=== PATIENT | male | born 1975 | race African-American/Black ===

== ENCOUNTER 2017-11-12 20:46 | Emergency (ER) | payer MEDICARE, MEDICAID ==
[~2017-11-12] VITALS: Ht 160 cm; Wt 124.0 kg
[2017-11-12] MEDS ORDERED: KETOROLAC 30 MG/1 ML ONE (22:54)
[2017-11-12] MEDS ORDERED: DIAZEPAM 5 MG TABLET ONE (22:54)
[2017-11-12] MEDS ORDERED: DIAZEPAM 5 MG TABLET PO ONE (23:00)
[2017-11-12] MEDS ORDERED: KETOROLAC 30 MG/1 ML IM ONE (23:00)
[2017-11-12 23:43] VITALS: BP 136/74
== END 2017-11-13 00:21 | disposition home or self-care (01) ==
LOC: ED 22:32
DX: S16.1XXA Strain of muscle, fascia and tendon at neck level, initial encounter (principal); S29.012A Strain of muscle and tendon of back wall of thorax, initial encounter; M51.34 Other intervertebral disc degeneration, thoracic region; R51 Headache; V49.49XA Driver injured in collision with other motor vehicles in traffic accident, initial encounter; Y93.89 Activity, other specified; Y99.8 Other external cause status; Y92.89 Other specified places as the place of occurrence of the external cause
CPT/HCPCS: 72020; 72050; 72072; 96372; 99284; J1885

== ENCOUNTER 2020-08-01 20:55 | Emergency (ER) | payer OTHER, MEDICAID ==
[~2020-08-01] VITALS: Ht 160 cm; Wt 122.7 kg
--- NOTE | 2020-08-01 20:56 | NUR ---
45M BIB EMS FROM HOME FOR RLQ ABD PAIN X2DAYS WITH NEW N/V. PT DENIES TRAUMA, DENIES ABD SX. PT GIVEN 4MG OF ZOFRAN PRESSER MACHINE WITH NO IMPROVEMENT. PT CONNECTED TO ALL MONITORING VSS.
[2020-08-01] MEDS ORDERED: ONDANSETRON 2MG/ML, 2ML ONE (21:22)
[2020-08-01] MEDS ORDERED: MORPHINE SULFATE 4 MG/ML, 1ML ONE ×2 (21:22→23:37)
[2020-08-01] MEDS: MORPHINE SULFATE 4 MG/ML, 1ML IVPush PRN ×2 (21:27→23:39)
[2020-08-01] MEDS ORDERED: ONDANSETRON 2MG/ML, 2ML IVPush ONE (21:30)
--- NOTE | 2020-08-01 21:30 | NUR ---
PT EDUCATED ON NEED FOR URINE SAMPLE
--- NOTE | 2020-08-01 21:30 | NUR ---
PT MEDICATED PER MAR FOR NAUSEA AND PAIN, 5 RIGHTS VERIFIED, PT STS FEELS BETTER.
[2020-08-01 21:37] LABS: BASOPHILS % (AUTO) 1 % (0-1); EOSINOPHILS % (AUTO) 0 % (1-7); LYMPHOCYTES % (AUTO) 24 % (22-44); MEAN CORPUSCULAR HEMOGLOBIN 29.7 pg (27.5-34.5); MEAN CORPUSCULAR HGB CONC 34.1 g/dL (33.2-36.2); MONOCYTES % (AUTO) 7 % (2-9); NEUTROPHILS % (AUTO) 68 % (42-75); PLATELET COUNT 229 x10^3/uL (130-400); RED BLOOD COUNT 5.58 x10^6/uL (4.38-5.82); RED CELL DISTRIBUTION WIDTH 13.5 % (9.4-14.8)
[2020-08-01 21:38] LABS: MD NO
[2020-08-01 21:48] LABS: CHLORIDE 108 mmol/L (98-107)
[2020-08-01 21:49] LABS: ALANINE AMINOTRANSFERASE 54 U/L (12-78); ALBUMIN 3.9 g/dL (3.4-5.0); ANION GAP 9 mmol/L (5-15); CALCIUM 8.8 mg/dL (8.5-10.1); CREATININE 1.35 mg/dL (0.7-1.3)
[2020-08-01 21:51] LABS: ALKALINE PHOSPHATASE 112 U/L (45-117); BILIRUBIN,TOTAL 0.6 mg/dL (0.2-1.0); TOTAL PROTEIN 7.8 g/dL (6.4-8.2)
[2020-08-01] MEDS ORDERED: OMNIPAQUE 350 MG/ML, 100ML BOTTLE ONE (22:00)
--- NOTE | 2020-08-01 22:15 | NUR ---
PT STS UNABL TO PROVIDE URINE SAMPLE AT THIS TIME
--- NOTE | 2020-08-01 23:02 | NUR ---
PT UP TO RESTROOM STEADY GAIT FOR URINE SAMPLE AT THIS TIME
[2020-08-01 23:27] LABS: MICROSCOPIC INDICATED
[2020-08-01 23:40] VITALS: BP 136/86
--- NOTE | 2020-08-01 23:40 | NUR ---
PT REQ MORE PAIN MEDS AT THIS TIME, PT MEDICATED PER APR, TOLERATED WELL RUPINDER
--- NOTE | 2020-08-02 00:02 | NUR ---
PROVIDER AT BEDSIDE FOR POC
--- NOTE | 2020-08-02 00:27 | NUR ---
Patient/Caregiver given discharge instructions and they have confirmed that they understand the instructions. Patient ambulatory with steady gait. NAD, all questions answered appropriately, denies additional needs at this time. No personal belongings left in room after discharge.
== END 2020-08-02 00:38 | disposition home or self-care (01) ==
LOC: ED 20:56
DX: N13.2 Hydronephrosis with renal and ureteral calculous obstruction (principal); R10.31 Right lower quadrant pain; R11.2 Nausea with vomiting, unspecified; E78.5 Hyperlipidemia, unspecified; F17.200 Nicotine dependence, unspecified, uncomplicated
CPT/HCPCS: 36415; 74176; 80053; 81001; 83690; 85025; 87086; 96374; 96375; 96376; 99284; J2270; J2405; Q9967

== ENCOUNTER 2020-08-06 12:24 | Emergency (ER) | payer OTHER, MEDICAID ==
[~2020-08-06] VITALS: Ht 160 cm; Wt 127.1 kg
[2020-08-06 12:55] LABS: MICROSCOPIC AUTO
[2020-08-06 15:13] LABS: BASOPHILS % (AUTO) 1 % (0-1); EOSINOPHILS % (AUTO) 1 % (1-7); LYMPHOCYTES % (AUTO) 23 % (22-44); MEAN CORPUSCULAR HEMOGLOBIN 29.9 pg (27.5-34.5); MEAN CORPUSCULAR HGB CONC 34.1 g/dL (33.2-36.2); MEAN PLATELET VOLUME 7.7 fL (7.4-10.4); MONOCYTES % (AUTO) 6 % (2-9); NEUTROPHILS % (AUTO) 69 % (42-75); PLATELET COUNT 244 x10^3/uL (130-400); RED BLOOD COUNT 4.91 x10^6/uL (4.38-5.82); RED CELL DISTRIBUTION WIDTH 13.2 % (9.4-14.8)
[2020-08-06 15:25] LABS: ALBUMIN 3.6 g/dL (3.4-5.0); ANION GAP 5 mmol/L (5-15); CALCIUM 8.8 mg/dL (8.5-10.1); CHLORIDE 113 mmol/L (98-107); CREATININE 1.01 mg/dL (0.7-1.3)
[2020-08-06 15:36] LABS: ALANINE AMINOTRANSFERASE 32 U/L (12-78); ALKALINE PHOSPHATASE 111 U/L (45-117); BILIRUBIN,TOTAL 0.3 mg/dL (0.2-1.0)
--- NOTE | 2020-08-06 17:14 | NUR ---
PT TO ROOM FROM LOBBY. ALL PIT ORDERS RESULTED, AWAITING ERP TO RECHECK. PT RATING PAIN AT 4/10, DOWN FROM 8/10 ON ARRIVAL TO ED. VS UPDATED IN COMPUTER. HTN , PT STATES HAS HAD HIGH BP BEFORE BUT NO DX OR HOME MEDICATION. CALL LIGHT WITHIN REACH.
[2020-08-06 19:09] VITALS: BP 170/99
== END 2020-08-06 19:11 | disposition home or self-care (01) ==
LOC: ED 13:21
DX: S39.012A Strain of muscle, fascia and tendon of lower back, initial encounter (principal); R10.9 Unspecified abdominal pain; N20.0 Calculus of kidney; F17.200 Nicotine dependence, unspecified, uncomplicated; X58.XXXA Exposure to other specified factors, initial encounter; Y93.89 Activity, other specified; Y92.89 Other specified places as the place of occurrence of the external cause; Y99.8 Other external cause status
CPT/HCPCS: 36415; 74018; 76770; 80053; 81001; 85025; 87086; 99284